=== PATIENT | female | born 1990 | race African-American/Black ===

== ENCOUNTER 2019-03-08 20:50 | Emergency (ER) | payer MEDICAID ==
[~2019-03-08] VITALS: Ht 165.1 cm; Wt 63.6 kg
[~2019-03-08 20:50] MED LIST: ACET-1008 PO; HYDR25SU32 RC; IBUP-1986 PO; IBUP-24 PO; LIDO30CR23 TOP; NO HOME MEDS; POLY119P2 PO
[2019-03-08 20:52] VITALS: BP 131/83
[2019-03-08] MEDS ORDERED: LIDOcaine Viscous 15ml cup MM STA (21:55)
[2019-03-08] MEDS ORDERED: LIDO20SO16 PO (21:59)
[2019-03-08] MEDS ORDERED: CLIN150C2 PO (21:59)
== END 2019-03-08 22:25 | disposition home or self-care (01) ==
LOC: ER 20:51
DX: K08.89 Other specified disorders of teeth and supporting structures (principal); K03.81 Cracked tooth; J45.909 Unspecified asthma, uncomplicated; F12.90 Cannabis use, unspecified, uncomplicated; F10.99 Alcohol use, unspecified with unspecified alcohol-induced disorder; Z88.0 Allergy status to penicillin; Z79.899 Other long term (current) drug therapy; Y90.9 Presence of alcohol in blood, level not specified
CPT/HCPCS: 99283

== ENCOUNTER 2020-05-23 17:50 | Emergency (ER) | payer MEDICAID ==
[~2020-05-23] VITALS: Ht 165.1 cm; Wt 66.8 kg
[~2020-05-23 17:50] MED LIST changes: +LIDO20SO16 PO
[2020-05-23] MEDS ORDERED: dexamethasone sod phosphate 10mg/ml inj PO STA (18:22)
[2020-05-23] MEDS ORDERED: diphenhydrAMINE 25mg capsule PO ONE (18:25)
[2020-05-23 18:59] VITALS: BP 136/68
== END 2020-05-23 19:01 | disposition home or self-care (01) ==
LOC: ER 17:51
DX: S00.561A Insect bite (nonvenomous) of lip, initial encounter (principal); T78.40XA Allergy, unspecified, initial encounter; K13.0 Diseases of lips; J45.909 Unspecified asthma, uncomplicated; F12.90 Cannabis use, unspecified, uncomplicated; Z72.89 Other problems related to lifestyle; Z88.0 Allergy status to penicillin; Z88.1 Allergy status to other antibiotic agents; Z79.899 Other long term (current) drug therapy; W57.XXXA Bitten or stung by nonvenomous insect and other nonvenomous arthropods, initial encounter; Y93.89 Activity, other specified; Y92.89 Other specified places as the place of occurrence of the external cause; Y99.8 Other external cause status
CPT/HCPCS: 99283; J1100; Q0163

== ENCOUNTER 2022-01-17 14:57 | Emergency (ER) | payer MEDICAID ==
[~2022-01-17] VITALS: Ht 165.1 cm; Wt 81.8 kg
[~2022-01-17 14:57] MED LIST changes: +LIDO30CR TOP; -LIDO30CR23 TOP
[2022-01-17 15:12] VITALS: BP 113/69
[2022-01-17] MEDS ORDERED: magnesium citrate 296ml oral solution PO ONE (17:20)
[2022-01-17 17:27] LABS: BASOPHILS % (AUTO) 0.5 % (0-1); EOSINOPHILS # (AUTO) 0.4 X10'3 (0-0.9); EOSINOPHILS % (AUTO) 6.5 % (0-6); HEMATOCRIT 34.9 % (35.0-45.0); HEMOGLOBIN 11.4 g/dl (12.0-16.0); LYMPHOCYTES # (AUTO) 2.3 X10'3 (1.1-4.8); LYMPHOCYTES % (AUTO) 34.1 % (21-51); MEAN CORPUSCULAR HEMOGLOBIN 26.9 PG (27.0-31.0); MEAN CORPUSCULAR HGB CONC 32.8 g/dL (33.0-36.5); MEAN PLATELET VOLUME 8.4 FL (7.4-10.4); MONOCYTES # (AUTO) 0.5 X10'3 (0-0.9); MONOCYTES % (AUTO) 7.2 % (2-12); NEUTROPHILS # (AUTO) 3.4 X10'3 (1.8-7.7); NEUTROPHILS % (AUTO) 51.7 % (42-75); PLATELET COUNT 299 X10'3 (140-440); RED BLOOD COUNT 4.25 X10'6 (4.20-5.60); RED CELL DISTRIBUTION WIDTH 15.2 % (11.5-14.5); WHITE BLOOD COUNT 6.6 X10'3 (4.5-11.0)
[2022-01-17 17:40] LABS: URINE HCG NEGATIVE (NEG)
[2022-01-17 17:41] LABS: CLARITY,URINE CLEAR (Clear); COLOR,URINE YELLOW (Yellow); GLUCOSE, URINE NEGATIVE (Neg); KETONES,URINE NEGATIVE (Neg); LEUKOCYTE ESTERASE ,URINE NEGATIVE (Neg); NITRITES, URINE NEGATIVE (Neg); OCCULT BLOOD,URINE NEGATIVE (Neg); PROTEIN,URINE NEGATIVE (Neg); UROBILINOGEN,URINE 0.2 E.U/dL (0.2-1.0)
[2022-01-17 17:42] LABS: ALANINE AMINOTRANSFERASE 54 U/L (12-78); ALBUMIN 3.6 G/DL (3.4-5.0); ALKALINE PHOSPHATASE 60 IU/L (46-116); ANION GAP 6 (8-16); ASPARTATE AMINO TRANSFERASE 29 U/L (10-37); BILIRUBIN,TOTAL 0.2 MG/DL (0.1-1.0); BLOOD UREA NITROGEN 10 MG/DL (7-18); BUN/CREATININE RATIO 14.5 (6.6-38.0); CHLORIDE 105 MMOL/L (99-107); CREATININE 0.69 MG/DL (0.40-0.90); GLUCOSE 88 MG/DL (70-104); POTASSIUM 3.9 MMOL/L (3.5-5.1); SODIUM 138 MMOL/L (135-145); TOTAL CARBON DIOXIDE 27.1 MMOL/L (24-32); TOTAL PROTEIN 7.3 G/DL (6.4-8.2); eGFR > 90 ML/MIN
[2022-01-17 17:43] LABS: UA COLLECTION TYPE NON-SPECIFIED
== END 2022-01-17 18:14 | disposition home or self-care (01) ==
LOC: ER 14:57
DX: K59.00 Constipation, unspecified (principal); J45.909 Unspecified asthma, uncomplicated; Z88.0 Allergy status to penicillin; Z88.1 Allergy status to other antibiotic agents; Z79.899 Other long term (current) drug therapy
CPT/HCPCS: 36415; 74018; 80053; 81003; 81025; 85025; 99284

== ENCOUNTER 2022-02-24 01:59 | Emergency (ER) | payer MEDICAID ==
[~2022-02-24] VITALS: Ht 165.1 cm; Wt 81.4 kg
[2022-02-24 04:15] VITALS: BP 144/103
[2022-02-24] MEDS ORDERED: SUMAtriptan succ. 6 MG/0.5ml vial SQ ONE (04:40)
[2022-02-24] MEDS ORDERED: ondansetron 4mg rapidly disintigrating tab PO ONE (04:40)
[2022-02-24] MEDS ORDERED: ketorolac trometh inj. 60 MG/2 ML VIAL IM ONE (04:40)
== END 2022-02-24 06:01 | disposition home or self-care (01) ==
LOC: ER 01:59
DX: G43.909 Migraine, unspecified, not intractable, without status migrainosus (principal); Z88.0 Allergy status to penicillin; Z88.1 Allergy status to other antibiotic agents
CPT/HCPCS: 96372; 99284; J1885; J3030